=== PATIENT | female | born 1975 | race Caucasian/White ===

== ENCOUNTER → 2016-06-13 | Outpatient (CLI) | payer OTHER ==
[~2016-06-13] MED LIST: BCPILLS PO; CLC100 PO; INSDGI SC; INSU100I17 SC; LDDP5 TD; MULTTAB58 PO; ONDA4TAB46 PO; RXC5 PO; VTMD1000 PO
== END | disposition home or self-care (01) ==
LOC: C.PAPS 14:51
PROVIDERS: ATTEND Obstetrics & Gynecology
DX: Z12.4 Encounter for screening for malignant neoplasm of cervix (principal)

== ENCOUNTER → 2016-07-14 | Outpatient (CLI) | payer OTHER, BC ==
--- NOTE | 2016-07-19 11:58 | MAMMOGRAPHY REPORT ---
BILATERAL DIGITAL DIAGNOSTIC MAMMOGRAM TOMOSYNTHESIS WITH CAD AND TARGETED LEFT ULTRASOUND: 7 CLINICAL HISTORY: The patient reports a palpable lump in her left axilla for approximately 6-9 month s. No material has been expressed from the lump. TECHNIQUE: Breast tomosynthesis in addition to standard 2D mammography was performed. Current study was also evaluated with a Computer Aided Detection (CAD) system. Bilateral CC and MLO 2-D and baron synthesis images and spot compression left CC and MLO views were obtained. COMPARISON: No prior exams were available for comparison. BREAST COMPOSITION: There are scattered areas of fibroglandular density in both breasts. FINDINGS: A triangle marker peter the site of the palpable lump in the left axillary region. The a karen is not well-visualized mammographically but no suspicious mammographic abnormalities seen in thi s region. The remainder of both breasts are negative, without suspicious masses, calcifications, or areas of architectural distortion noted. Targeted ultrasound was performed of the area of the palpable lump pointed out by the patient in the left axillary region. No suspicious mass or other suspicious sonographic abnormalities evident. A t the site of the palpable lump there is a subtle round hypoechoic mass within the skin, measuring 2 x 3 x 1 mm. Given that it is intradermal, it is benign and likely represents an epidermal inclusio n/sebaceous cyst. IMPRESSION: ACR BI-RADS CATEGORY 2: BENIGN, TARGETED ULTRASOUND ACR BI-RADS CATEGORY 2: BENIGN The palpable lump in the left axillary region corresponds with a 3 x 2 mm intradermal hypoechoic mas s, which is benign and likely represents an epidermal inclusion/sebaceous cyst. There is no mammogr aphic evidence of malignancy in either breast. Recommend clinical follow-up for the left axillary l ump, and recommend routine bilateral screening mammograms in one year. The patient has been verbally notified of the results. Approximately 10% of breast cancers are not detected with mammography. A negative mammographic repor t should not delay biopsy if a clinically suggestive mass is present. Jo Ann Stacy M.D. /:07/14/2016 10:11:50 [employer]el Mechan[employer] Construction: Yolanda PANTOJA(Kaylee)(Devang), [facility] letter sent: Normal 1/2 BI-RADS Code: ACR BI-RADS Category 2: Benign Ultrasound BI-RADS: ACR BI-RADS Category 2: Benign
== END | disposition home or self-care (01) ==
LOC: C.MAMM 09:32
PROVIDERS: ATTEND Obstetrics & Gynecology
DX: R22.9 Localized swelling, mass and lump, unspecified (principal)

== ENCOUNTER 2016-07-17 15:59 | Inpatient (IN) | payer OTHER, BC ==
[~2016-07-17] VITALS: Ht 167.6 cm; Wt 62.0 kg
[~2016-07-17 15:59] MED LIST changes: -CLC100 PO; -LDDP5 TD; -ONDA4TAB46 PO; -RXC5 PO; -VTMD1000 PO
[2016-07-17 19:03] VITALS: BP 117/78; PULSE 67; TEMP 36.9; O2SAT 100
[2016-07-17] MEDS ORDERED: OXYCODONE/ACETAMINOPHEN 5-325 TAB PO ONE (19:48)
[2016-07-17] MEDS: KETOROLAC TROMETHAMINE 30 MG/ML VIAL IV STA (19:48)
[2016-07-17] MEDS ORDERED: LIDODERM (LIDOCAINE) PATCH 5% TD ONE (19:48)
[2016-07-17] MEDS ORDERED: ACETAMINOPHEN 325 MG TAB PO PRN (20:00)
[2016-07-17] MEDS ORDERED: MAGNESIUM HYDROXIDE SUSP 30 ML UDC PO PRN (20:00)
[2016-07-17] MEDS ORDERED: PHARMACY GLYCEMIC MGMT CONSULT PRN (20:24)
[2016-07-17] MEDS ORDERED: INSULIN GLARGINE SOLOSTAR 100 UNITS/ML 3 ML PEN SC SCH ×2 (21:00→22:00)
--- NOTE | 2016-07-17 21:26 | HISTORY & PHYSICAL EXAMINATION ---
DATE OF ADMISSION: 07/17/2016 CHIEF COMPLAINT: Back pain. HISTORY OF PRESENT ILLNESS: The patient is a very pleasant 40-year-old female who was at a trampoline park. She and her friends had taken their sons. She did a back flip, did not land right, landed on her back and then it sounded like she continued to rotate around. She had pretty immediate, pretty intense pain in her back. She was not really able to get up off the trampoline. Her friend brought her 800 mg of Motrin but she did not have that in for very long before she was on her way to the ER and apparently en route, then they gave her fentanyl and Ativan. So she had a hard time telling what all helped but the pain improved some. Now she notes lying in bed, she just cannot get in a comfortable position but the pain is entirely located in her back. She notes it is basically in the region of her lumbar spine, it does not radiate to her groin. It does not radiate to her legs. She does not have any radicular pain with movement, she just has pain local to her back with movement. She denies any loss of control of bowel or bladder and has no abdominal pain or other symptoms. REVIEW OF SYSTEMS: Otherwise negative except for as above. PAST MEDICAL HISTORY: Includes type 1 diabetes with her most recent A1c being 9.1 about a month ago. MEDICATIONS: Include Lantus 15 units subQ at bedtime and Humalog with a correction factor of 40 and carb ratio of 1:10, vitamin D 2000 international units daily, multivitamin and control pills. PAST SURGICAL HISTORY: Includes wisdom teeth. FAMILY HISTORY: She notes positive family history of hypertension, hyperlipidemia and no osteoporosis. SOCIAL HISTORY: She does not smoke. No significant alcohol, no drugs. 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 ALLERGIES: LISTED PROMETHAZINE WITH APPARENTLY HYPOTENSION AND EXTRAPYRAMIDAL SYMPTOMS THE SIDE EFFECT. PHYSICAL EXAMINATION: VITAL SIGNS: Her pulse ox is 97% pulse 67, blood pressure 116/72. GENERAL: She is awake, alert, oriented x3, pleasant but appears to be uncomfortable. She is lying fairly still, speaking softly and moving very slowly. HEENT: Normocephalic, atraumatic. Mucous membranes are moist. CARDIOVASCULAR: Regular without rubs, murmurs, or gallops. LUNGS: Clear to auscultation bilaterally. No rales, rhonchi, or wheezes with good effort. ABDOMEN: Soft, nondistended, nontender, no masses or organomegaly. EXTREMITIES: Without cyanosis, clubbing or edema. No calf tenderness. SKIN: Shows no rashes. No pallor or icterus. NEUROLOGIC: Shows cranial nerves II-XII to be grossly intact. Gross motor and sensory are intact. She shows no paresthesias to confrontational light touch, everything is equal, particularly in detail the T12-L3 area was checked in most detail and she shows no motor weakness and she has equal strength 5/5 in bilateral lower extremities. MENTAL STATUS: Shows good recent and remote recall. Normal mood and affect. Good judgment and insight. LABS AND DIAGNOSTICS: No labs were done at the [facility]. Her most recent A1c was June 12, 9.1. Her most recent basic metabolic panel was June 12 that showed a BUN of 11, creatinine of 0.86. Her most recent TSH was not quite a year ago at 1.1 and she does not have a vitamin D level on record that I can find. CT of her L-spine showed an anterior wedge compression fracture deformity of L1, resulting in a 50% loss of height and up to 0.5 cm retropulsion of the superior endplate into the ventral spinal canal, resulting in mild to moderate canal narrowing, L2-5 vertebral heights preserved without compression fracture, no subluxation, posterior elements intact throughout the lumbar spine. No definite disc herniation is visualized, noting that the intervertebral discs are not well visualized on CT and the conclusion was an acute compression fracture of L1. ASSESSMENT AND PLAN: 1. Back pain/acute L1 compression fracture. This appears to be traumatic from the trampoline injury. She shows no signs or symptoms of cord compression or nerve root compression fortunately and her main symptoms are axial pain. Because of it having been a traumatic fracture, although it appears most likely bracing, pain control and time will be the management. I certainly will be asking spine to take a look at her to ensure no further workup or treatment does need to be considered, particularly given again that this was traumatic, but again she shows no spinal cord compression symptoms and no radicular symptoms at all. We will be asking orthotics to see her, outfit her with a brace, putting a lidocaine patch over the area and utilizing Tylenol for mild, Percocet or Toradol for moderate and morphine for severe pain. Although it was traumatic, given that she is type 1 diabetic and thyroid disease is fairly common, we will be checking a TSH and checking a vitamin D. 2. Type 1 diabetes, fairly uncontrolled with an A1c of 9.1. We will continue her home insulin, follow fingersticks. Her A1c was just a month ago, so there is not really a need to recheck now and we will have glycemic control consult at the patient's request. 3. Deep venous thrombosis prophylaxis, ambulation. She is overall fairly low risk. Certainly if she appears to be in a bed bound state for longer than anticipated, we will need to start pharmacologic deep venous thrombosis prophylaxis but at this point in time, ambulation should suffice.
--- NOTE | 2016-07-17 21:28 | Pharmacy Progress Note ---
Glycemic: Assessment & Plan Date of Service Jul 17, 2016. Assessment & Plan ASSESSMENT: * 40yo type ONE diabetic - patient is known to be very insulin sensitive * Recent A1c is slightly elevated for patient age, co-morbidities, already working very closely with [facility] endocrinology * Expect insulin needs to be slightly different from outpatient based on stress , pain, decreased PO intake. Will conservatively dose insulin and titrate based on BSG trends. * HS BSG slightly low @ 74mg/dl - will titrate Lantus to prevent hypo. * Conservative check + coverage at 0200 tonight to prevent rebound hyperglycemia from decreased Lantus dose PLAN: * Basal insulin: Lantus SQ HS- dose based on HS BSG * If BSG 140 or below --> Administer Lantus 13 units * If BSG 141- 179mg/dl --> Administer Lantus 14 units * If BSG 180mg/dl or above --> Administer Lantus 15 units * Correctional Insulin: Novolog Correction per scale ACHS. Goal Range: Low 110 mg/dL - High 140 mg/dL Correction Factor: 40 mg/dL/unit * Prandial insulin: Per carb ratio of 1 unit per 10 grams CHO consumed * Conservative Additional check at 0200 tonight in case Lantus dose under dosed Goal Range: Low 200 mg/dL - High 220 mg/ dL Correction Factor: 40 mg/dL/unit Pharmacy will continue to monitor patient daily and write orders per [facility] inpatient glycemic control protocol. Thanks. * Please note that the plan above was derived based on current level of insulin resistance and hospital stress. These recommendations are appropriate for inpatient admission only. Plan of care upon discharge will need to be reassessed to avoid potential outpatient hypo/hyperglycemia.
[2016-07-17] MEDS: MoRPHine SULFATE 4 MG/ML 1 ML CARP\\VIAL IV PRN (21:46)
[2016-07-17 22:52] LABS: BLOOD UREA NITROGEN 10 mg/dl (7-18); BUN/CREATININE RATIO 11.7 (10-20); CALCIUM 8.1 mg/dl (8.5-10.1); CARBON DIOXIDE 24 mmol/L (21-32); CHLORIDE 106 mmol/L (98-107); CREATININE 0.84 mg/dl (0.60-1.20); GLUCOSE 190 mg/dl (70-99); POTASSIUM 3.6 mmol/L (3.5-5.1); SODIUM 141 mmol/L (136-145)
[2016-07-17 23:19] VITALS: BP 103/61; PULSE 63; TEMP 37.1; O2SAT 96
[2016-07-17 23:42] VITALS: BP 103/61; PULSE 63; TEMP 37.1; BMI 22.1
[2016-07-18] MEDS ORDERED: INSULIN ASPART 100 UNITS/ML 3 ML PEN SC SCH (02:00)
[2016-07-18] MEDS: KETOROLAC TROMETHAMINE 30 MG/ML VIAL IV STA (02:17)
[2016-07-18] MEDS: MoRPHine SULFATE 4 MG/ML 1 ML CARP\\VIAL IV PRN ×2 (02:21→07:35)
[2016-07-18] MEDS: OXYCODONE/ACETAMINOPHEN 5-325 TAB PO PRN ×2 (04:18→12:10)
[2016-07-18] MEDS: KETOROLAC TROMETHAMINE 30 MG/ML VIAL IV PRN ×3 (04:22→18:49)
[2016-07-18] MEDS ORDERED: CYCLOBENZAPRINE HCL 5 MG TAB PO STA (04:40)
[2016-07-18 07:16] VITALS: BP 95/61; PULSE 65; TEMP 36.9; O2SAT 98
[2016-07-18] MEDS ORDERED: LIDODERM (LIDOCAINE) PATCH 5% TD SCH (09:00)
[2016-07-18] MEDS: MULTIVITAMIN TAB PO SCH (09:43)
[2016-07-18] MEDS: CHOLECALCIFEROL 1000 INTER.UNIT TAB PO SCH (09:43)
[2016-07-18] MEDS: INSULIN ASPART 100 UNITS/ML 3 ML PEN SC SCH ×4 (09:48→21:14)
--- NOTE | 2016-07-18 10:30 | Progress Note ---
Subjective Date of Service: Jul 18, 2016. Subjective Pt evaluation today including: conversation w/ patient, conversation w/ family , physical exam, chart review, lab review, review of studies, review of inpatient medication list Complain of pain not well controlled, for now no pain if no movement, but if movement will cause a lot of pain, has been constipation for several days,, Review of Systems Constitutional: No chills, No fatigue, No fever, No problem reported, No sweats , No weakness, No weight loss Eyes: No diplopia, No discharge, No eye pain, No redness, No worsening of vision ENT: No dental problems, No hearing loss, No nasal symptoms, No sore throat, No tinnitus, No trouble swallowing, No unusual epistaxis Respiratory: No cough, No dyspnea at rest, No dyspnea on exertion, No hemoptysis, No shortness of breath, No sputum, No wheezing Cardiac: No PND, No chest pain, No claudication, No edema, No orthopnea, No palpitations Abdomen: No constipation, No diarrhea, No nausea, No pain, No vomiting Musculoskeletal: + joint pain, + see HPI, No calf pain, No muscle pain, No swelling Female : No abnormal vaginal bleeding, No dysuria, No hematuria, No incontinence, No urinary frequency, No vaginal discharge Neurologic: No balance problems, No memory loss, No numbness/tingling, No paralysis, No vertigo, No weakness Psychiatric: No anhedonism, No anxiety, No depression symptoms, No insomnia, No substance abuse Heme: No abnormal bleeding/bruising, No clotting problems, No night sweats, No swollen lymph nodes Endo: No excessive thirst, No excessive urination, No fatigue Skin: No bleeding, No color change, No itch, No new/changing skin lesions, No rash Objective Vital Signs Date Time Temp Pulse Resp B/P Pulse Ox O2 Delivery O2 Flow Rate FiO2 07/18/16 07:16 36.9 65 18 95/61 98 Room Air 07/17/16 23:54 Room Air 07/17/16 23:42 37.1 63 14 103/61 Room Air 07/17/16 23:19 37.1 63 14 103/61 96 Room Air 07/17/16 19:03 36.9 67 14 117/78 100 Room Air Physical Exam General Appearance: WD/WN, no apparent distress Eyes: normal inspection, PERRL, EOMI, sclerae normal ENT: normal ENT inspection, hearing grossly normal, pharynx normal Neck: supple, no adenopathy, thyroid normal, no JVD, no carotid bruits, trachea midline Respiratory/Chest: chest non-tender, lungs clear, normal breath sounds, no respiratory distress, no accessory muscle use Cardiovascular: regular rate, rhythm, no edema, no gallop, no JVD, no murmur Abdomen: normal bowel sounds, non tender, soft, no organomegaly, no pulsatile mass Extremities: normal range of motion, non-tender, normal inspection, no pedal edema, no calf tenderness, normal capillary refill, pelvis stable, + pertinent finding (limited range of motion in the back because of fracture) 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, no motor/sensory deficits, alert, normal mood/affect, oriented x 3 Skin: normal color, warm/dry, no rash Lymphatic: no adenopathy Laboratory Results Last 24 Hours Test 07/17/16 20:19 07/17/16 22:02 07/18/16 02:00 07/18/16 08:01 Bedside Glucose 74 mg/dl 76 mg/dl 56 mg/dl Sodium Level 141 mmol/L Potassium Level 3.6 mmol/L Chloride Level 106 mmol/L Carbon Dioxide Level 24 mmol/L Anion Gap 11.0 mmol/L Blood Urea Nitrogen 10 mg/dl Creatinine 0.84 mg/dl Estimated GFR () 100.8 Estimated GFR (Non- 86.9 BUN/Creatinine Ratio 11.7 Random Glucose 190 mg/dl Calcium Level 8.1 mg/dl 25-Hydroxy Vitamin D Total 28.1 ng/ml Thyroid Stimulating Hormone (TSH) 2.400 uIu/ml Test 07/18/16 08:26 07/18/16 09:32 Bedside Glucose 57 mg/dl 138 mg/dl Assessment and Plan 40-year-old white female admitted on 07/17/2016 because of fell and L1 compression fracture Intractable Back pain/acute L1 compression fracture. Traumatic Move extremities, no tingling and numbness, no stool or urine incontinence, no signs or symptoms of cord compression or nerve root compression Uncontrolled Type 1 diabetes, with an A1c of 9.1. continue her home insulin, follow fingersticks. H Constipation, start MiraLAX as needed Vitamin D deficiency, continue home dose of 2000 international units by mouth daily, discuss with patient about medicine compliance Plan: as above Pain control, use fentanyl patch for baseline pain, and morphine as needed for breakthrough pain, Pending orthopedic input, pending orthotic for brace PT OT evaluation, very possible need rehabilitation Deep venous thrombosis prophylaxis, ambulation, heparin subcutaneous every 12 Continued [facility] stay due to: multiple IV medications needed Discharge planning: home
[2016-07-18] MEDS ORDERED: POLYETHYLENE (MIRALAX) 17 GM PACK PO ONE (10:45)
[2016-07-18] MEDS ORDERED: DOCUSATE SODIUM 100 MG CAP PO ONE (10:45)
[2016-07-18] MEDS ORDERED: FENTANYL PATCH REMOVE & WASTE SCH (10:59)
[2016-07-18] MEDS ORDERED: FENTANYL 12 MCG/HR TDSY TD SCH (11:00)
[2016-07-18 11:33] LABS: INR 0.9 (0.9-1.1); PROTHROMBIN TIME (PATIENT) 10.1 SECONDS (9.0-12.0)
[2016-07-18 15:07] VITALS: BP 100/65; PULSE 62; TEMP 36.7; O2SAT 97
[2016-07-18] MEDS ORDERED: CHECK FENTANYL PATCH PLACEMENT SCH (16:00)
[2016-07-18] MEDS ORDERED: FENTANYL PATCH REMOVE & WASTE ONE (16:15)
[2016-07-18] MEDS: OXYCODONE HCL IR 5 MG TAB (IMMEDIATE RELEASE) PO PRN ×2 (16:33→21:08)
[2016-07-18] MEDS: ACETAMINOPHEN 500 MG TAB PO SCH (16:35)
--- NOTE | 2016-07-18 16:52 | CONSULTATION REPORT ---
DATE OF CONSULTATION: 07/18/2016 ORTHOPEDIC CONSULTATION CHIEF COMPLAINT: Back pain, L1 compression fracture. 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 She was at a trampoline Park in [place], tried to back flip and landed on her shoulders. She did feel a crack and immediate pain in her back. She was brought here to [facility], transferred from [place] after having a CT scan. She complains only of back pain at this time. No numbness, tingling, no bowel or bladder incontinence, no lower extremity radicular type pain. She has been able to ambulate to the bathroom today. Brace has been ordered. She had no back pain prior to this injury. She has no other complaints at this time. PAST MEDICAL HISTORY: Reviewed and includes diabetes. PAST SURGICAL HISTORY: [place] tooth extraction. MEDICATIONS: Insulin, multivitamin, control. FAMILY HISTORY AND SOCIAL HISTORY: Reviewed on her admission H\T\P. ALLERGIES: INCLUDE PROMETHAZINE. REVIEW OF SYSTEMS: Negative. PHYSICAL EXAMINATION: GENERAL: Today - she is alert, oriented. She is in no distress, supine in bed. EXTREMITIES: She has no hip pain or groin pain with range of motion of her lower extremities. She does get some pain in her lower back with motion of her lower extremities. I did not move her back, otherwise. Her sensation is intact to touch in her lower extremities. She is able to dorsiflex and plantarflex appropriately and has good EHL function. She has 5/5 strength with dorsiflexion, plantarflexion and EHL. X-RAYS: No new x-rays were obtained today. CT scan was reviewed and imported in our synapse system, which showed an anterior wedge compression deformity at L1. On further report, there is a 0.5 cm retropulsion of the superior endplate into the canal. IMPRESSION: L1 anterior wedge compression fracture. PLAN: Discussed the case with Dr. Parson who recommended continued conservative management at this time. Brace has been ordered, which is appropriate and she is still waiting to be fitted and to received a brace though at this point. physical therapy has been ordered. In discussion with her as far as pain medications, she would like to not use the fentanyl patch, so we will discontinue this. She would like to take Tylenol regularly, so we will put her on 1000 mg of Tylenol q. 8 hours and then oxycodone as needed q. 4hours. She also has IV morphine ordered and is receiving Toradol as well. She is apparently a han as well, which she will have difficulty managing those responsibilities at this time as she really should not be doing any bending or heavy lifting or carrying. From an orthopedic standpoint, She could be discharged as long as her pain is under control. She should follow up with Dr. Parson, Sunday of this week in the office. Any questions, please call [phone]. [facility]
[2016-07-18] MEDS: DOCUSATE SODIUM 100 MG CAP PO SCH (21:08)
[2016-07-18] MEDS: LIDODERM (LIDOCAINE) PATCH 5% TD SCH (21:09)
[2016-07-18] MEDS: INSULIN GLARGINE SOLOSTAR 100 UNITS/ML 3 ML PEN SC SCH (21:15)
[2016-07-18] MEDS: HEPARIN SOD 5000 UNIT/0.5 ML CARP SQ SCH (21:16)
[2016-07-18 23:19] VITALS: BP 92/54; PULSE 59; TEMP 36.8; O2SAT 93
[2016-07-19] MEDS: ACETAMINOPHEN 500 MG TAB PO SCH ×4 (00:51→20:59)
[2016-07-19] MEDS: KETOROLAC TROMETHAMINE 30 MG/ML VIAL IV PRN ×2 (01:35→18:12)
[2016-07-19] MEDS: OXYCODONE HCL IR 5 MG TAB (IMMEDIATE RELEASE) PO PRN ×5 (01:39→21:11)
[2016-07-19] MEDS: POLYETHYLENE (MIRALAX) 17 GM PACK PO PRN ×3 (06:35→21:11)
[2016-07-19] MEDS: ONDANSETRON INJ 2 MG/ML 2 ML VIAL IV PRN ×2 (08:00→18:09)
[2016-07-19 08:19] VITALS: BP 120/70; PULSE 76; TEMP 36.9; O2SAT 99
[2016-07-19 08:36] VITALS: BMI 22.1
--- NOTE | 2016-07-19 08:39 | ORTHOPEDIC CONSULTATION ---
DATE OF CONSULTATION: 07/19/2016 DATE OF CONSULTATION: 07/19/2016. Follow-up consultation and notation. SUBJECTIVE: Pretty was seen and evaluated this morning. She is alert, oriented. She has moderate complaints of pain. 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 She is neurologically intact. Moves all 4 extremities. She has been up on her feet. CT scan was evaluated. She has a compression fracture and actually a burst component of the compression fracture with approximately 40% anterior compression. IMPRESSION: Compression fracture and burst fracture of the L1 vertebrae lumbar spine in a 40-year-old female neurologically intact. DISPOSITION: We are going to get her fitted for a thoracolumbar sacral orthosis. Russ Mccormack will see her later on this morning or later on this evening. If an [id number] standard TLSO is appropriate and fits her well that will be excellent. If she needs a molded TLSO that will be also appropriate. We need to keep her extended. We need to prevent her from forward flexion. I will be rounding on her daily.
[2016-07-19] MEDS: HEPARIN SOD 5000 UNIT/0.5 ML CARP SQ SCH (09:00)
[2016-07-19] MEDS ORDERED: CHOLECALCIFEROL 1000 INTER.UNIT TAB PO SCH (09:00)
[2016-07-19] MEDS: DOCUSATE SODIUM 100 MG CAP PO SCH ×2 (09:06→20:59)
[2016-07-19] MEDS: MULTIVITAMIN TAB PO SCH (09:06)
[2016-07-19] MEDS: CHOLECALCIFEROL 1000 INTER.UNIT TAB PO SCH (09:07)
[2016-07-19] MEDS: INSULIN ASPART 100 UNITS/ML 3 ML PEN SC SCH ×4 (09:19→18:18)
--- NOTE | 2016-07-19 09:29 | Pharmacy Progress Note ---
Glycemic: Assessment & Plan Date of Service Jul 19, 2016. Assessment & Plan ASSESSMENT: * 40yo type ONE diabetic - patient is known to be very insulin sensitive * Recent A1c is slightly elevated for patient age, co-morbidities, already working very closely with [facility] endocrinology * Pt with HYPOGLYCEMIA 07/18 AM most likely secondary to Lantus dose given 07/17 PM --> pt was ordered 13 units but Pt requested 14 units * BSGs 07/18: 56 --> 76, 138, 185, 213, 231 * Pt with HYPOGLYCEMIA 07/19 AM most likely secondary to Lantus + NovoLog coverage at HS --> current Lantus dosing is less aggressive than outpatient dosing. Doses were not changed 07/19 after hypoglycemia because pt had requested increased Lantus dose compared to scale. * To prevent further hypoglycemia will make the following changes: * Decrease Lantus by 1 unit per BSG range * Lower HS SSI --> increase goal range and increase CF so less NovoLog will be given at bedtime * Pt is requesting that CF be changed from 40 to 35. This should improve stress hyperglycemia. PLAN: * SLIGHTLY DECREASE Basal insulin with Lantus SQ HS- dose based on HS BSG * If BSG 140 or below --> Administer Lantus 12 units * If BSG 141- 179mg/dl --> Administer Lantus 13 units * If BSG 180mg/dl or above --> Administer Lantus 14 units * Correctional/Prandial Insulin with Novolog per scale AC only Goal Range: Low 110 mg/dL - High 140 mg/dL Correction Factor: 35 mg/dL/unit Per carb ratio of 1 unit per 10 grams CHO consumed * Correctional/Prandial insulin with Novolog per scale HS only Goal Range: Low 120 mg/dL - High 150 mg/dL Correction Factor: 50 mg/dL/unit Per carb ratio of 1 unit per 10 grams CHO consumed BSGs continue to improve, no changes needed to inpatient regimen at this time. Pharmacy will continue to monitor patient daily and write orders per [facility] inpatient glycemic control protocol. Thanks. * Please note that the plan above was derived based on current level of insulin resistance and hospital stress. These recommendations are appropriate for inpatient admission only. Plan of care upon discharge will need to be reassessed to avoid potential outpatient hypo/hyperglycemia.
[2016-07-19] MEDS ORDERED: BISACODYL 10 MG SUPP PR STA (09:47)
[2016-07-19 09:55] VITALS: O2SAT 99
--- NOTE | 2016-07-19 09:57 | Progress Note ---
Subjective Date of Service: Jul 19, 2016. Subjective Pt evaluation today including: conversation w/ patient, conversation w/ family , physical exam, chart review, lab review, review of studies, review of inpatient medication list Lower back pain possible better controlled, however still has constipation, no other complaining, has not been out of bed yet, Review of Systems Constitutional: + fatigue, No chills, No fever, No problem reported, No sweats , No weakness, No weight loss Eyes: No diplopia, No discharge, No eye pain, No redness, No worsening of vision ENT: No dental problems, No hearing loss, No nasal symptoms, No sore throat, No tinnitus, No trouble swallowing, No unusual epistaxis Respiratory: No cough, No dyspnea at rest, No dyspnea on exertion, No hemoptysis, No shortness of breath, No sputum, No wheezing Cardiac: No PND, No chest pain, No claudication, No edema, No orthopnea, No palpitations Abdomen: + constipation, No diarrhea, No nausea, No pain, No vomiting Musculoskeletal: + joint pain, No calf pain, No muscle pain, No swelling Female : No abnormal vaginal bleeding, No dysuria, No hematuria, No incontinence, No urinary frequency, No vaginal discharge Neurologic: No balance problems, No memory loss, No numbness/tingling, No paralysis, No vertigo, No weakness Psychiatric: No anhedonism, No anxiety, No depression symptoms, No insomnia, No substance abuse Heme: No abnormal bleeding/bruising, No clotting problems, No night sweats, No swollen lymph nodes Endo: No excessive thirst, No excessive urination, No fatigue Skin: No bleeding, No color change, No itch, No new/changing skin lesions, No rash Objective Vital Signs Date Time Temp Pulse Resp B/P Pulse Ox O2 Delivery O2 Flow Rate FiO2 07/19/16 08:19 36.9 76 16 120/70 99 Room Air 07/19/16 00:05 Room Air 07/18/16 23:19 36.8 59 18 92/54 93 Room Air 07/18/16 15:15 Room Air 07/18/16 15:07 36.7 62 16 100/65 97 Room Air Physical Exam General Appearance: WD/WN, no apparent distress Eyes: normal inspection, PERRL, EOMI, sclerae normal ENT: normal ENT inspection, hearing grossly normal, pharynx normal Neck: supple, no adenopathy, thyroid normal, no JVD, no carotid bruits, trachea midline Respiratory/Chest: chest non-tender, normal breath sounds, no respiratory distress, no accessory muscle use, + decreased breath sounds Cardiovascular: regular rate, rhythm, no edema, no gallop, no JVD, no murmur Abdomen: normal bowel sounds, non tender, soft, no organomegaly, no pulsatile mass Extremities: normal range of motion, non-tender, normal inspection, no pedal edema, no calf tenderness, normal capillary refill, pelvis stable, + pertinent finding (lower back local tender) 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, no motor/sensory deficits, alert, normal mood/affect, oriented x 3 Skin: normal color, warm/dry, no rash Lymphatic: no adenopathy Laboratory Results Last 24 Hours Test 07/18/16 11:13 07/18/16 11:49 07/18/16 16:42 07/18/16 20:34 Prothrombin Time 10.1 SECONDS Prothromb Time International Ratio 0.9 Activated Partial Thromboplast Time 24.9 SECONDS Partial Thromboplastin Ratio 1.0 Bedside Glucose 185 mg/dl 213 mg/dl 231 mg/dl Test 07/19/16 05:56 07/19/16 06:17 07/19/16 08:10 Bedside Glucose 61 mg/dl 63 mg/dl 142 mg/dl Assessment and Plan 40-year-old white female admitted on 07/17/2016 because of fell and L1 compression fracture, stable and improving Intractable Back pain/acute L1 compression fracture. Traumatic acute L1 compression fracture Orthopedic saw patient, recommend brace, PT OT, and follow-up plan and pain control, we need to let patient know she need to prevent her from forward flexion. Uncontrolled Type 1 diabetes, with an A1c of 9.1. continue her home insulin, follow fingersticks. Constipation, has been on MiraLAX as needed, does not help, suppository is ordered Vitamin D deficiency, continue home dose of 2000 international units by mouth daily, discuss with patient about medicine compliance Plan: as above Pain control, out of bed PT OT evaluation, possible discharge to home tomorrow, or per recommendation of PT/OT Deep venous thrombosis prophylaxis, ambulation, Lovenox daily Continued [facility] stay due to: multiple IV medications needed Discharge planning: home
[2016-07-19] MEDS ORDERED: BISACODYL 10 MG SUPP PR PRN (10:00)
[2016-07-19 11:25] VITALS: Ht 167.6 cm; Wt 62.0 kg
[2016-07-19 11:37] VITALS: BP 115/70; PULSE 69; O2SAT 99
[2016-07-19 15:03] VITALS: BP 102/60; PULSE 75; TEMP 37; O2SAT 98
[2016-07-19 16:00] VITALS: O2SAT 98
[2016-07-19] MEDS ORDERED: INSULIN ASPART 100 UNITS/ML 3 ML PEN SC SCH (21:00)
[2016-07-19] MEDS: LIDODERM (LIDOCAINE) PATCH 5% TD SCH (21:01)
[2016-07-19] MEDS: INSULIN GLARGINE SOLOSTAR 100 UNITS/ML 3 ML PEN SC SCH (21:06)
[2016-07-19 23:21] VITALS: BP 94/51; PULSE 72; TEMP 37; O2SAT 93
[2016-07-20] MEDS: KETOROLAC TROMETHAMINE 30 MG/ML VIAL IV PRN ×3 (00:30→15:48)
[2016-07-20] MEDS: OXYCODONE HCL IR 5 MG TAB (IMMEDIATE RELEASE) PO PRN (03:36)
[2016-07-20] MEDS: ACETAMINOPHEN 500 MG TAB PO SCH ×3 (03:37→13:45)
[2016-07-20 07:15] VITALS: BP 97/66; PULSE 67; TEMP 36.6; O2SAT 97
[2016-07-20 07:17] LABS: BASO % 0.7 %; BASO ABS # 0.07 K/uL (0-0.2); COMPLETE YES; IG% 0.2 %; LYMPH % 12.4 %; LYMPH ABS # 1.18 K/uL (1.2-3.4); MEAN CELL VOLUME 86.9 fL (80-100); MEAN CORPUSCULAR HEMOGLOBIN 30.1 pg (25-34); MEAN CORPUSCULAR HGB CONC 34.6 g/dl (32-36); MONO % 5.7 %; PLATELET COUNT 263 K/uL (130-400); RED BLOOD COUNT 4.72 M/uL (4.2-5.4); WHITE BLOOD COUNT 9.54 K/uL (4.8-10.8)
[2016-07-20] MEDS ORDERED: SOD PHOSPHATE/SOD BIPHOSPHATE ENEMA 132 ML BTL PR PRN (07:30)
[2016-07-20] MEDS: ONDANSETRON INJ 2 MG/ML 2 ML VIAL IV PRN (07:43)
[2016-07-20 07:45] VITALS: BP 103/66
[2016-07-20 07:52] LABS: BUN/CREATININE RATIO 9.1 (10-20); CALCIUM 8.8 mg/dl (8.5-10.1); CREATININE 0.98 mg/dl (0.60-1.20); MAGNESIUM 2.4 mg/dl (1.8-2.4); POTASSIUM 4.2 mmol/L (3.5-5.1)
[2016-07-20] MEDS ORDERED: SOD PHOSPHATE/SOD BIPHOSPHATE ENEMA 132 ML BTL PR ONE (08:00)
--- NOTE | 2016-07-20 08:36 | Discharge Instructions ---
Discharge Instructions Admission Reason for Admission: Lumbar Compression Fracture Discharge Discharge Diagnosis / Problem: compression fx Discharge Goals Goal(s): Improve function Activity Recommendations Activity Limitations: as noted below Lifting Limitations: until after follow-up appointment Exercise/Sports Limitations: until after follow-up appointment May Resume Sexual Activity: after follow-up appointment Shower/Bathe: keep incision dry Driving or Machine Use: careful with bending . Instructions / Follow-Up Instructions / Follow-Up Wear Brace when out of bed sitting and ambulatory. Follow up with Dr. Parson in one week Patient to call for appointment Current Hospital Diet Patient's current hospital diet: Diabetes Type 1 Diet Discharge Diet Recommended Diet: Regular Diet Pending Studies Studies pending at discharge: no Laboratory Results Hemoglobin A1c Test 06/12/16 11:14 Range/Units Estimated Average Glucose 214 mg/dl Hemoglobin A1c 9.1 H 4.5-5.6 % Medical Emergencies . Who to Call and When: Medical Emergencies: If at any time you feel your situation is an emergency, please call 911 immediately. . Non-Emergent Contact Non-Emergency issues call your: Surgeon Call Non-Emergent contact if: you have any medication questions . "Provider Documentation" section prepared by Nemesio Parson. VTE Core Measure Inpt VTE Proph given/why not?: Treatment not indicated
--- NOTE | 2016-07-20 08:45 | PROGRESS NOTE ---
DATE: 07/20/2016 She is improved, stable, up ambulatory, brace fits appropriately, she tolerates it well, she likes it. Good bowel sounds. No bowel movement. Vital signs stable. IMPRESSION: Burst fracture L1 vertebra, treated conservatively. DISPOSITION: Includes instructions, precautions, education. Maintain upright posture. Back brace is to be worn when she is out of bed to chair and ambulatory. She should use a walker for support as well, keeping upright. I should see her back in the office in approximately 1 week. The office number is [phone]. They have to call and make the appointment for an x-ray in the office.
[2016-07-20] MEDS: DOCUSATE SODIUM 100 MG CAP PO SCH (08:59)
[2016-07-20] MEDS: CHOLECALCIFEROL 1000 INTER.UNIT TAB PO SCH (08:59)
[2016-07-20] MEDS ORDERED: ENOXAPARIN 40 MG/0.4 ML SYR SQ SCH (09:00)
[2016-07-20] MEDS: MULTIVITAMIN TAB PO SCH (09:00)
[2016-07-20] MEDS: INSULIN ASPART 100 UNITS/ML 3 ML PEN SC SCH ×3 (09:09→13:41)
[2016-07-20 09:40] VITALS: BP 120/71
[2016-07-20] MEDS: POLYETHYLENE (MIRALAX) 17 GM PACK PO PRN (09:42)
[2016-07-20] MEDS ORDERED: RXC5 PO (12:14)
[2016-07-20] MEDS ORDERED: CLC100 PO (12:14)
[2016-07-20] MEDS ORDERED: LDDP5 TD (12:14)
[2016-07-20] MEDS ORDERED: VTMD1000 PO (12:14)
[2016-07-20] MEDS ORDERED: ONDA4TAB46 PO (12:34)
--- NOTE | 2016-07-20 12:38 | Discharge Instructions ---
Discharge Instructions Admission Reason for Admission: Lumbar Compression Fracture Discharge Discharge Diagnosis / Problem: fracture L1 vertebra, Discharge Goals Goal(s): Decrease discomfort, Improve function, Increase independence, Improve disease control, Improve nutritional status, Learn about illness, Diagnostic testing, Therapeutic intervention, Prevent Disease Progression, Specific goals Activity Recommendations Activity Limitations: as noted below . Instructions / Follow-Up Instructions / Follow-Up you have Burst fracture L1 vertebra you need to follow up the instructions from Dr. Parson, Maintain upright posture. Back brace is to be worn when you out of bed to chair and ambulatory. you should use a walker for support as well, keeping upright. f/u with Dr. Parson in office in approximately 1 week. The office number is . you ahve have to call and make the appointment for an x-ray in the office. - you need to follow up with your primary care physician in 1 week, - take medication as instructed, never overdose or any misuse, or take with alcohol, because misuse of medicine may cause organ damage or , call your primary care physician if have questions of medicaitons. - call your primary care physician OR go to local emergency room if has any fever/chill, chest pain, shortness of breathing, nausea/vomiting/abdominal pain , facial droop/slurry speech/local weakness, or if has any questions. - fall precaution - diet as instructed - you need to follow up with your subspecialist - you should understand that it is important to follow up the above instruction , and "not following the above instruction" may cause delayed or missed care of your medical conditions which may cause permanent organ damage and even . Current Hospital Diet Patient's current hospital diet: Diabetes Type 1 Diet Discharge Diet Recommended Diet: Diabetes Type 2 Diet Pending Studies Studies pending at discharge: no Laboratory Results Hemoglobin A1c Test 06/12/16 11:14 Range/Units Estimated Average Glucose 214 mg/dl Hemoglobin A1c 9.1 H 4.5-5.6 % Medical Emergencies . Who to Call and When: Medical Emergencies: If at any time you feel your situation is an emergency, please call 911 immediately. . Non-Emergent Contact Non-Emergency issues call your: Primary Care Provider, Specialist (ortho) . . "Provider Documentation" section prepared by Kai Magaña. VTE Core Measure Inpt VTE Proph given/why not?: Enoxaparin (Lovenox)SQ
--- NOTE | 2016-07-20 13:59 | Discharge Summary ---
Discharge Summary Date of Service Jul 20, 2016. Discharge Summary Admission Date: Jul 17, 2016 at 15:59 Discharge Date: Jul 20, 2016 Discharge Disposition: Home Principal Diagnosis: urst fracture L1 vertebra Problems/Secondary Diagnoses: LBP Constipation Type I diabetic Procedures: No Consultations: Orthopedic doctors Sefter Medication Reconciliation New Medications: Ondansetron Hcl (Zofran) 4 Mg Tab 4 MG PO Q6 PRN for nausea for 5 Days, #20 TAB Cholecalciferol (Vitamin D3) 1,000 Inter.unit Tab 2000 INTER.UNIT PO QAM for 30 Days, #6 TAB Docusate Sodium (Docusate Sodium) 100 Mg Cap 100 MG PO BID for 30 Days, #60 CAP Lidocaine (Lidocaine) 1 Patch Tdsy 1 PATCH TD DAILY@2100 for 7 Days Oxycodone HCl (Oxycodone HCl) 5 Mg Tab 5 MG PO Q4 PRN for Pain for 3 Days, #15 TAB 1 tab po when pain <5/10 2 tab po when pain >5/10 Continued Medications: Control Pills ( Control Pills) Tab 1 TAB PO DAILY Insulin Glargine (Lantus) Vial 13.5 UNITS SC HS, 0 Refills Insulin Lispro (Human) (Humalog Pen) 100 Unit/ Inj 0 SC ACHS, INJ Multiple Vitamin (Multivitamin) 1 Tab Tab 1 TAB PO DAILY Discharge Exam Has been doing well, out of bed to chair, walk with the therapist, mild nausea, still have no bowel movement Review of Systems: Constitutional: No chills, No fatigue, No fever, No problem reported, No sweats, No weakness, No weight loss Eyes: No diplopia, No discharge, No eye pain, No problem reported, No redness, No worsening of vision ENT: No dental problems, No hearing loss, No nasal symptoms, No problem reported, No sore throat, No tinnitus, No trouble swallowing, No unusual epistaxis Respiratory: No cough, No dyspnea at rest, No dyspnea on exertion, No hemoptysis, No problem reported, No shortness of breath, No sputum, No wheezing Cardiovascular: No PND, No chest pain, No claudication, No edema, No orthopnea, No palpitations, No problem reported Abdomen: No GI bleeding, No constipation, No diarrhea, No nausea, No pain, No problem reported, No vomiting Musculoskeletal: + joint pain, + muscle pain Genitourinary - Female: No dysmenorrhea, No dysuria, No hematuria, No menorrhagia, No metrorrhagia, No , No problem reported, No rash, No urinary frequency, No urinary incontinence, No urinary retention, No urinary urgency, No vaginal bleeding, No vaginal discharge, No vaginal itching, No vulvodynia Neurologic: No balance problems, No memory loss, No numbness/tingling, No paralysis, No problem reported, No vertigo, No weakness Endocrine: No excessive thirst, No excessive urination, No fatigue, No problem reported Hematologic / Lymphatic: No abnormal bleeding/bruising, No clotting problems , No night sweats, No problem reported, No swollen lymph nodes Integumentary: No bleeding, No color change, No itch, No new/changing skin lesions, No problem reported, No rash Physical Exam: General Appearance: WD/WN, no apparent distress Eyes: normal inspection, PERRL, EOMI ENT: normal ENT inspection, hearing grossly normal, TMs normal, pharynx normal Neck: supple, no adenopathy, thyroid normal Respiratory/Chest: chest non-tender, normal breath sounds, no respiratory distress, + decreased breath sounds Cardiovascular: regular rate, rhythm, no edema, no gallop Abdomen / GI: normal bowel sounds, non tender, soft, no organomegaly, no pulsatile mass Extremities: normal inspection, no calf tenderness, normal capillary refill , no pedal edema, normal range of motion 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 Traumatic acute L1 compression fracture Continue stable and improving, pain is fairly controlled Orthopedic saw patient, recommend brace, PT OT, and follow-up plan and pain control, per recommendation from orthopedic patient need to prevent her from forward flexion. Uncontrolled Type 1 diabetes, with an A1c of 9.1. continue her home insulin, follow fingersticks. Constipation, has been on MiraLAX as needed, does not help, suppository is ordered Vitamin D deficiency, continue home dose of 2000 international units by mouth daily, discuss with patient about medicine compliance Plan: Pain control, out of bed PT OT evaluation patient, recommended okay to discharge to home Continue pain control, Zofran for nausea, Instructions / Follow-Up you have Burst fracture L1 vertebra you need to follow up the instructions from Dr. Parson, Maintain upright posture. Back brace is to be worn when you out of bed to chair and ambulatory. you should use a walker for support as well, keeping upright. f/u with Dr. Parson in office in approximately 1 week. The office number is . you ahve have to call and make the appointment for an x-ray in the office. - you need to follow up with your primary care physician in 1 week, - take medication as instructed, never overdose or any misuse, or take with alcohol, because misuse of medicine may cause organ damage or , call your primary care physician if have questions of medicaitons. - call your primary care physician OR go to local emergency room if has any fever/chill, chest pain, shortness of breathing, nausea/vomiting/abdominal pain , facial droop/slurry speech/local weakness, or if has any questions. - fall precaution - diet as instructed - you need to follow up with your subspecialist - you should understand that it is important to follow up the above instruction , and "not following the above instruction" may cause delayed or missed care of your medical conditions which may cause permanent organ damage and even . Total Time Spent: Greater than 30 minutes This includes examination of the patient, discharge planning, medication reconciliation, and communication with other providers. Discharge Instructions Please refer to the electronic Patient Visit Report (Discharge Instructions) for additional information. Additional Copies To Nemesio Parson, DO
[2016-07-20 14:35] VITALS: BP 120/71; PULSE 67; TEMP 36.6; O2SAT 97
[2016-07-20 15:05] VITALS: BP 92/57; PULSE 68; TEMP 36.8; O2SAT 97
== END 2016-07-20 16:00 | disposition home or self-care (01) | DRG 552 ==
LOC: C.MSN 15:59
PROVIDERS: ADMIT Family Medicine; ATTEND Hospitalist
DX: S32.011A Stable burst fracture of first lumbar vertebra, initial encounter for closed fracture (principal); E10.9 Type 1 diabetes mellitus without complications; Z79.4 Long term (current) use of insulin; Z79.899 Other long term (current) drug therapy; Z82.49 Family history of ischemic heart disease and other diseases of the circulatory system; Z84.89 Family history of other specified conditions; Z88.8 Allergy status to other drugs, medicaments and biological substances; W19.XXXA Unspecified fall, initial encounter; Y93.39 Activity, other involving climbing, rappelling and jumping off; Y92.838 Other recreation area as the place of occurrence of the external cause; E55.9 Vitamin D deficiency, unspecified; K59.00 Constipation, unspecified

== ENCOUNTER → 2016-12-11 | Outpatient (CLI) | payer OTHER, BC ==
[~2016-12-11] MED LIST changes: +CLC100 PO; +LDDP5 TD; +RXC5 PO; +VTMD1000 PO
[2016-12-11 12:28] LABS: ESTIMATED AVERAGE GLUCOSE 226 mg/dl; HA1C FLAG Normal (Normal)
== END | disposition home or self-care (01) ==
LOC: C.LAB 11:14
PROVIDERS: ATTEND Nurse Practitioner Adult Health
DX: E10.9 Type 1 diabetes mellitus without complications (principal); E55.9 Vitamin D deficiency, unspecified

== ENCOUNTER → 2016-12-21 | Outpatient (CLI) | payer OTHER, BC ==
[2016-12-21 11:26] LABS: ALT/SGPT 25 U/L (12-78); AST/SGOT 16 U/L (15-37); BLOOD UREA NITROGEN 10 mg/dl (7-18); BUN/CREATININE RATIO 10.9 (10-20); CALCIUM 9.3 mg/dl (8.5-10.1); CARBON DIOXIDE 32 mmol/L (21-32); CHLORIDE 104 mmol/L (98-107); CREATININE 0.91 mg/dl (0.60-1.20); GLUCOSE 155 mg/dl (70-99); POTASSIUM 4.1 mmol/L (3.5-5.1); SODIUM 138 mmol/L (136-145)
== END | disposition home or self-care (01) ==
LOC: C.LAB 07:17
PROVIDERS: ATTEND Nurse Practitioner Adult Health
DX: E10.9 Type 1 diabetes mellitus without complications (principal)

== ENCOUNTER → 2017-04-18 | Outpatient (CLI) | payer OTHER, BC ==
[2017-04-19 07:00] LABS: ESTIMATED AVERAGE GLUCOSE 223 mg/dl; HA1C FLAG Normal (Normal)
== END | disposition home or self-care (01) ==
LOC: C.LAB 16:55
PROVIDERS: ATTEND Nurse Practitioner Adult Health
DX: E10.649 Type 1 diabetes mellitus with hypoglycemia without coma (principal)

== ENCOUNTER → 2017-06-15 | Outpatient (CLI) | payer OTHER | END | disposition home or self-care (01) | LOC: C.PAPS 09:26 | PROVIDERS: ATTEND Obstetrics & Gynecology | DX: Z01.411 Encounter for gynecological examination (general) (routine) with abnormal findings (principal); R87.610 Atypical squamous cells of undetermined significance on cytologic smear of cervix (ASC-US) ==

== ENCOUNTER → 2017-07-16 | Outpatient (CLI) | payer OTHER ==
--- NOTE | 2017-07-16 14:51 | MAMMOGRAPHY REPORT ---
BILATERAL DIGITAL SCREENING MAMMOGRAM TOMOSYNTHESIS WITH CAD: 07/16/2017 CLINICAL HISTORY: Routine screening. Patient has no complaints. TECHNIQUE: Breast tomosynthesis in addition to standard 2D mammography was performed. Current study was also evaluated with a Computer Aided Detection (CAD) system. COMPARISON: Comparison is made to exams dated: 07/14/2016 ultrasound and 07/14/2016 mammogram - [facility]. BREAST COMPOSITION: There are scattered areas of fibroglandular density in both breasts. FINDINGS: The parenchymal pattern is unchanged. No developing mass, architectural distortion or clus ter of suspicious microcalcifications is seen in either breast. IMPRESSION: ACR BI-RADS CATEGORY 2: BENIGN There is no mammographic evidence of malignancy. A 1 year screening mammogram is recommended. The pa tient will receive written notification of the results. Approximately 10% of breast cancers are not detected with mammography. A negative mammographic report should not delay biopsy if a clinically suggestive mass is present. Chrissy Hewitt M.D. ay/:07/16/2017 12:35:56 Mailing Machine Operator: Yolanda PANTOJA(Kaylee)(M), [facility] letter sent: Normal 1/2 BI-RADS Code: ACR BI-RADS Category 2: Benign
== END | disposition home or self-care (01) ==
LOC: C.MAMM 10:30
PROVIDERS: ATTEND Obstetrics & Gynecology
DX: Z12.31 Encounter for screening mammogram for malignant neoplasm of breast (principal)